=== PATIENT | female | born 1990 ===

== ENCOUNTER 2017-02-19 13:01 | Inpatient (IN) | payer OTHER, SELFPAY ==
[2017-02-19] MEDS ORDERED: Lactated Ringer's 1,000 ML IV ONE (14:34)
[2017-02-19 14:56] LABS: RBC URINE 3 /hpf (0-3); URINE BILIRUBIN NEGATIVE (NEGATIVE); URINE BLOOD NEGATIVE (NEGATIVE); URINE COLOR Yellow (YELLOW); URINE GLUCOSE (UA) 3+ mg/dL (Normal); URINE KETONE TRACE mg/dL (NEGATIVE); URINE LEUKOCYTE ESTERASE TRACE Leu/uL (Negative); URINE PROTEIN 2+ mg/dL (NEGATIVE); URINE UROBILINOGEN NORMAL mg/dL (0.2-1.0); WBC URINE 12 /hpf (0-5)
[2017-02-19] MEDS ORDERED: Magnesium Sulfate 6 GM in Dextrose 5% In Water 250 ML IVPB ONE (15:31)
[2017-02-19] MEDS ORDERED: Aluminum Hydroxide/Magnesium Hydroxide Susp (30 mL) ONE (15:36)
[2017-02-19 16:06] LABS: HEMATOCRIT 37.3 % (34.0-47.0); MEAN CELL VOLUME 81.7 fL (81.0-99.0); MEAN CORPUSCULAR HEMOGLOBIN 26.2 pg (27.0-31.0); MEAN CORPUSCULAR HGB CONC 32.1 g/dL (33.0-37.0); MEAN PLATELET VOLUME 11.4 fL (7.2-11.7); RED CELL DISTRIBUTION WIDTH 14.9 % (11.5-14.5)
[2017-02-19 16:17] LABS: CHLORIDE 104 mmol/L (98-107); POTASSIUM 3.9 mmol/L (3.6-5.2); SODIUM 137 mmol/L (132-148)
[2017-02-19 16:19] LABS: ALKALINE PHOSPHATASE 151 U/L (38-126); AST/SGOT 34 U/L (14-36); BILIRUBIN,DIRECT 0.5 mg/dL (0.0-0.4); BILIRUBIN,TOTAL 0.5 mg/dL (0.2-1.3); BLOOD UREA NITROGEN 12 mg/dL (7-17); CARBON DIOXIDE 22 mmol/L (22-30); GFR AFRICAN-AMERICAN > 60; GLUCOSE,RANDOM 128 mg/dL (65-105); TOTAL PROTEIN 6.9 g/dL (6.3-8.3)
[2017-02-19 16:20] LABS: ALT/SGPT 13 U/L (9-52); CALCIUM 8.9 mg/dl (8.6-10.4); URIC ACID 5.5 mg/dL (2.2-7.5)
[2017-02-19] MEDS ORDERED: Dextrose 5%/Lactated Ringer's 1,000 ML IV SCH ×2 (18:30→20:30)
--- NOTE | 2017-02-19 19:25 | OBPN ---
Datetime: 02/19/2017 19:14 IP Progress Plan: Continue present management; Tocolysis Membranes, Provider: Intact Contraction Comments Provider: Q 4 min FHR - Baseline A Provider: 150 Gestation - Est Wks by US: 32w 5d IP Progress Note Comment: FHR monitor noted for continued ctx every 4 min. Also, notified by RAndres p atient reports RLQ discomfort still present, improved - pain scale now 5/10. Received in bed: denies headaches, blurred vision, spots, epigastric pain. V.E.: as above. Assessment: 26 y.o. [id number], 32w 5d, GDM - poorly controlled; h/o labor - threatened labor on magnesium sulphate for tocolysis. No cervical change. Patient also on 24 hour urine collect ion (2+ proteinuria) - no signs of per-eclampsia. Category 1 tracing. Labs reviewed - grossly wnl. Cl inically stable. Plan: 1) Continue present management NICHD Accel Fetus A IP Provider: 15X15 FHR Category Provider Fetus A: Category I NICHD Variability Prov Fetus A: Moderate 6-25bpm Dilatation, Provider: 2 Effacement, Provider: 30 Station, Provider: -3 NICHD Decel Fetus A IP Provider: None Datetime: 02/19/2017 14:00 Vital Signs Provider: Reviewed; Within Normal Limits
--- NOTE | 2017-02-19 20:11 | OBHP ---
Datetime: 02/19/2017 19:14 FHR - Baseline A Provider: 150 Membranes, Provider: Intact Contraction Comments Provider: Q 4 min Gestation - Est Wks by US: 32w 5d NICHD Variability Prov Fetus A: Moderate 6-25bpm NICHD Accel Fetus A IP Provider: 15X15 FHR Category Provider Fetus A: Category I NICHD Decel Fetus A IP Provider: None Dilatation, Provider: 2 Effacement, Provider: 30 Station, Provider: -3 Datetime: 02/19/2017 14:00 IP Adm Impression: , intrauterine IP Chief Complaint Other: Elevated F.S. 298 mg/dL IP Adm Impression Other: History of delivery; gestational diabetes mellitus IP Admit Plan: Admit to unit IP Admit Plan Other: Tocolysis Admit Comment, IP Provider: Patient is Slovenian-speaking; interview and patient care mediated by Cici Garcia 26 y.o. , LMP unsure, JESUS 04/11/17, EGA 32w 5d by patient by 16 weeks ultrasound, presents concerned about results of 2 hr post prandial F.S. after breakfast= 298 mg/dL. (Fasting 147 mg/dL). Newly diagnosed GDM: GCT 01/27/17 215 mg/dL. Patient's F.S. log started 02/16 - all fastaings >> 90 mg/d L and all 2 hour post prandials >> 120 mg/dL. Of note patient ate fruits last evening/night only. The n ate 1/2 avocado and cheese for breakfast this morning. (+) AFM. Denies LOF, VB. C/O RLQ pain, onse t 02/15/17, pain scale 8/10 to 10/10. Worse this morinng at 1100 hours; pain scale 10/10 - "feels like contractions". Last had sexual intercourse 1 week ago. care: [facility] - Rh negative; S/P Rhog am mid January.; H/O delivery; S/P UTI x 1; abnormal Pap = HSIL; did not do colposcopy as recom mended P Ob: x 5:- 1st 3 FT - 2001, male - home weight unknonwn; 2003, female, 8 1/2 lb; 2006, male, 7 1/2 lbs. 2006, and 2013, both at "8 months", both males, 6 1/2 lb and 7 1/2 lbss, re spectively. Denies GDM in latter 2 pregnancies. All deliveries in [facility]. 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 Denies STIs PMH: obesity; GDM. JH/O asthma, diagnosed 2015; last attack 4 months ago PSH: denies NKDA Meds: PNV - QD Soc Hx: denies tobacco, illicit drug or EtOH use. Lives with FOB and last 2 children (1st [address] are in [facility]). With FOB x 17 years. Unemployed Fam Hx: Mother alive 55 y.o. no med issue. Father alive 88 - loss of vision due to cataract; no DM . No knonw fam h/o cancer P.E.: as above. Obese in NAD; appears a little uncomfortable, intermittently. Awake, alert, orient ed to time, person and place. Pleasant and cooperative Assessment: 26 yo grand multip, 32w 5d, h/o 2 prev PT deliveries; newly diagnosed GDM - to be opti mized. Category 1 tracing. Case discussed with Dr. Jones, who recommends the following: do not admin ister steroids due to hyperglycemic effect; admit for magnesium sulpjhate tocolysis. F.S. hourly and titrate IVFs accordingly and cover with sliding insulin scale. Upon discharge, have patient follow up with HRC, his recommendatoin at [facility]. This was explained to patient who expressed an understanding and agrees. U/A noted for proteinuria; leuk esterase negative. Patient is clinically stable. Plan: 1) Admit 2) NPO 3) IVFs alternating LR with D5LR 4) Admission labs, including pre-eclamptic labs 5) Urine for C_S 6) 24 hour colllection 7) Magnesium sulphate tocolysis 8) Strict I's and Os 9) Continuous EFM 10) F.S. Q hour 11) Observe Pelvic Type - PN: Adequate Extremities - PN: Normal Abdomen - PN: Normal Back - PN: Normal Breast - PN: Not Done Lungs - PN: Normal Heart - PN: Normal Thyroid - PN: Not Done Neurologic - PN: Normal HEENT - PN: Normal General - PN: Normal Comments, ACOG Physical Exam: Skin: warm, dry, intact Abdomen: obese. Soft, non tender in all quadrants Extremities: no calf tenderness All other systems reviewed and are negative IP Hx Assessment: The History has been Reviewed and is Current EGA AdmitDate IP: 32.5 Vital Signs Provider: Reviewed; Within Normal Limits IP Chief Complaint: Uterine contractions; Other Genitourinary Exam: Normal DTRs - PN: Not Done
[2017-02-19] MEDS: Magnesium Sulfate 20 gm 500 ML IV SCH (20:19)
[2017-02-20] MEDS ORDERED: Magnesium Sulfate 20 gm 500 ML IV ONE (04:51)
[2017-02-20] MEDS: Magnesium Sulfate 20 gm 500 ML IV SCH (06:50)
--- NOTE | 2017-02-20 08:16 | OBPN ---
Datetime: 02/20/2017 08:12 Contraction Comments Provider: none FHR - Baseline A Provider: 130 IP Progress Note Comment: pt was seen at bed side, no ctx, vb, lof,+fm. pt fels ok. pt is on mgso4 plan dc mgso4 fs fasting and 2 hr pp ada deit cont mendy and efm cont close observation NICHD Variability Prov Fetus A: Moderate 6-25bpm NICHD Decel Fetus A IP Provider: None
--- NOTE | 2017-02-20 15:00 | US ---
OB limited/biophysical profile Indication: Gestational diabetic Technique: Grayscale, color flow, and M-mode sonographic images of the single live intrauterine were obtained. Comparison: None available Findings: There is a single live intrauterine gestation. The fetus is in breech position. The placenta is fundal. There is no evidence of previa. There is a normal amount of amniotic fluid. The ROBB measures 19.1 cm. M-mode imaging demonstrates a heart rate to be 150.2 beats per min. Cervix length measures approximately 3.2 cm. Biparietal diameter measures 9.0 cm compatible with gestational age 36 weeks 4 days Head circumference measures 32.5 cm compatible with gestational age 36 weeks 5 days Abdominal circumference 34.2 cm compatible with gestational age 38 weeks 1 day Femur length measures approximately 7 cm compatible with gestational age 35 weeks 5 days movements 2/2 breathing 2/2 tone 2/2 Amniotic fluid 2/2 Total score impression: 8 Impression: Biophysical profile of 8 out of 8. Single live intrauterine in the breech position with a heart rate of 150.2 beats per min. Mean ultrasound gestational age 36 weeks 6 days. Please note that abdominal circumference measurement is slightly increased compatible with gestational age 38 weeks 1 day. Additional findings as above.
--- NOTE | 2017-02-20 17:25 | OBPN ---
Datetime: 02/20/2017 17:21 IP Procedures: Sterile Vag Exam Contraction Comments Provider: irrg FHR - Baseline A Provider: 140 IP Progress Note Comment: pt was seen at bed side. 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 pt feels goood, no ctxs, vb, lof,+fm. toco irrg ctxs sono breech/fundal//36.6weeks bpp 8/8 fs well controlled ve closed. ext os 11/21/-3 plan fs start ivf repeat sono in Maternal medicine cont mendy and efm repeat pih in am cont close observation Vital Signs Provider: Reviewed; Within Normal Limits NICHD Accel Fetus A IP Provider: 10X10 FHR Category Provider Fetus A: Category I NICHD Variability Prov Fetus A: Moderate 6-25bpm Dilatation, Provider: 0 Effacement, Provider: 0 Station, Provider: -3
[2017-02-20] MEDS ORDERED: Lactated Ringer's 1,000 ML IV SCH (17:30)
[2017-02-21 06:52] LABS: CHLORIDE 104 mmol/L (98-107); POTASSIUM 3.9 mmol/L (3.6-5.2); SODIUM 136 mmol/L (132-148)
[2017-02-21 06:54] LABS: BILIRUBIN,DIRECT 0.5 mg/dL (0.0-0.4); BILIRUBIN,TOTAL 0.6 mg/dL (0.2-1.3); CARBON DIOXIDE 22 mmol/L (22-30); GFR AFRICAN-AMERICAN > 60
[2017-02-21 06:55] LABS: ALKALINE PHOSPHATASE 126 U/L (38-126); ALT/SGPT 19 U/L (9-52); AST/SGOT 37 U/L (14-36); BLOOD UREA NITROGEN 11 mg/dL (7-17); CALCIUM 8.4 mg/dl (8.6-10.4); GLUCOSE,RANDOM 99 mg/dL (65-105); TOTAL PROTEIN 6.2 g/dL (6.3-8.3)
[2017-02-21 07:34] LABS: BASO % 0.4 % (0.0-2.0); EOS # 0.1 K/uL (0.0-0.7); EOS % 1.2 % (0.0-4.0); LYMPH # 2.3 K/uL (1.0-4.3); LYMPH % 24.4 % (20.0-40.0); MEAN CELL VOLUME 80.8 fL (81.0-99.0); MEAN CORPUSCULAR HEMOGLOBIN 26.1 pg (27.0-31.0); MEAN CORPUSCULAR HGB CONC 32.3 g/dL (33.0-37.0); MEAN PLATELET VOLUME 10.7 fL (7.2-11.7); MONO # 0.6 K/uL (0.0-0.8); MONO % 6.6 % (0.0-10.0); RED CELL DISTRIBUTION WIDTH 14.9 % (11.5-14.5); WHITE BLOOD COUNT 9.5 K/uL (4.8-10.8)
[2017-02-21] MEDS ORDERED: HYDROmorphone 0.5 mg/0.5 ml ISec IVP PRN (15:42)
--- NOTE | 2017-02-21 16:11 | OBPN ---
Datetime: 02/21/2017 14:33 IP Progress Impression: Reassuring heart rate IP Progress Plan: Discharge Contraction Comments Provider: occ Gestation - Est Wks by US: 34.2 IP Progress Note Comment: S-patient states that she does not feel the contractions or pain anymore.D enies vaginal bleeding or loss of fluid O-VSS Afebrile Fundus gravid Extremities no calf tenderness fht cat1 [place] occ ctx sve 11/21/-3 A/P 26 y/o at 34.2 wga with contracxtions and gestational diabtes.Patient s/p magn esium sulfate.No change in cervix since admission essentially.Blood sugars noted to be elavted fastin g and 2 hr pp after breakfast and lunch today.Also some elevated blood sugar pp yesterday.Ultrasound done yesterday showed AC measuring 38 weeks.Urine cx>100K gbs.Rh negative-s/p rhogam.Pap done was hgs [place].patient never did colpo. -start gluburide 1.25 mg at bed time.continue fs fasting and 2 hr pp.Return to er immediately if b lood sugar >200mg/dl -UTI.start amoxicillin 500mg tidx 7 days -patient sent to ATU for growth scan with perinatology eval.Ultrasound shows EFW 3849 grams (>99 %).Transverse.BPP 05/30.recommend twice weekly testung and grwoth scan in 2 weeks. -follow up with in 2 days.Schedule colposcopy as soon as possible.schedule echo asa p Dr Burgess called and case discussed.Discussed need for repeat bpp on or monday and then ag ain twice weekly next week and grwoth scan in 2 weeks Explained the plan of care and ultrasound findings with the patient Vital Signs Provider: Reviewed; Within Normal Limits FHR Category Provider Fetus A: Category I Dilatation, Provider: 1 Effacement, Provider: 30 Station, Provider: -3
--- NOTE | 2017-02-21 16:18 | OBDCSUM ---
Datetime: 02/21/2017 16:10 Discharged to, Provider: Home Follow up at, Provider: DR Burgess([facility] Disch Instr Activity: Normal activity Disch Instr Diet: Restricted, specify Discharge Diet restrict Prov: ADA diet Discharge Instructions, Provider: Routine instructions given Discharge Time: 02/21/2017 16:10 Follow up in weeks, Provider: 2 DAYS Discharge Comment, Provider: Patient admitted with abdominal pain at 34 wga by ultrasound.Patient gi hema magnesium sulfate.FS done.FS noted to be elevated and hence started on glyburide.Urine cx with >1 00k gbs.Ultrasound done shows LGA with efw >99%.Patient discharged home.Sctript for glyburide and amoxicillin given.Discussed need for testing twice weekly and growth scan in 2 weeks.Patien t given decreased movement, labor and PPROM precautions Discharge Diagnosis Prov Other: gestational diabetes on gluburide UTI Infant Lga
--- NOTE | 2017-03-10 16:39 | OBADHP ---
Datetime: 02/21/2017 14:33 Contraction Comments Provider: occ Gestation - Est Wks by US: 34.2 Vital Signs Provider: Reviewed; Within Normal Limits FHR Category Provider Fetus A: Category I Dilatation, Provider: 1 Effacement, Provider: 30 Station, Provider: -3 Datetime: 02/20/2017 17:21 FHR - Baseline A Provider: 140 NICHD Variability Prov Fetus A: Moderate 6-25bpm NICHD Accel Fetus A IP Provider: 10X10 Datetime: 02/20/2017 08:12 NICHD Decel Fetus A IP Provider: None Datetime: 02/19/2017 19:14 Membranes, Provider: Intact Datetime: 02/19/2017 14:00 IP Chief Complaint Other: Elevated F.S. 298 mg/dL IP Adm Impression Other: History of delivery; gestational diabetes mellitus IP Admit Plan Other: Tocolysis Admit Comment, IP Provider: Patient is Belizean-speaking; interview and patient care mediated by Cici Garcia 26 y.o. , LMP unsure, JESUS 04/11/17, EGA 32w 5d by patient by 16 weeks ultrasound, presents concerned about results of 2 hr post prandial F.S. after breakfast= 298 mg/dL. (Fasting 147 mg/dL). Newly diagnosed GDM: GCT 01/27/17 215 mg/dL. Patient's F.S. log started 02/16 - all fastaings >> 90 mg/d L and all 2 hour post prandials >> 120 mg/dL. Of note patient ate fruits last evening/night only. The n ate 1/2 avocado and cheese for breakfast this morning. (+) AFM. Denies LOF, VB. C/O RLQ pain, onse t 02/15/17, pain scale 8/10 to 10/10. Worse this morinng at 1100 hours; pain scale 10/10 - "feels like contractions". Last had sexual intercourse 1 week ago. care: [facility] - Rh negative; S/P Rhog am mid January.; H/O delivery; S/P UTI x 1; abnormal Pap = HSIL; did not do colposcopy as recom mended P Ob: x 5:- 1st 3 FT - 2001, male - home weight unknonwn; 2003, female, 8 1/2 lb; 2006, male, 7 1/2 lbs. 2006, and 2013, both at "8 months", both males, 6 1/2 lb and 7 1/2 lbss, re spectively. Denies GDM in latter 2 pregnancies. All deliveries in [facility]. 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 Denies STIs PMH: obesity; GDM. JH/O asthma, diagnosed 2015; last attack 4 months ago PSH: denies NKDA Meds: PNV - QD Soc Hx: denies tobacco, illicit drug or EtOH use. Lives with FOB and last 2 children (1st 3 are in [facility]). With FOB x 17 years. Unemployed Fam Hx: Mother alive 55 y.o. no med issue. Father alive 88 - loss of vision due to cataract; no DM . No knonw fam h/o cancer P.E.: as above. Obese in NAD; appears a little uncomfortable, intermittently. Awake, alert, orient ed to time, person and place. Pleasant and cooperative Assessment: 26 yo grand multip, 32w 5d, h/o 2 prev PT deliveries; newly diagnosed GDM - to be opti mized. Category 1 tracing. Case discussed with Dr. Jones, who recommends the following: do not admin ister steroids due to hyperglycemic effect; admit for magnesium sulpjhate tocolysis. F.S. hourly and titrate IVFs accordingly and cover with sliding insulin scale. Upon discharge, have patient follow up with [facility], his recommendatoin at [facility]. This was explained to patient who expressed an understanding and agrees. U/A noted for proteinuria; leuk esterase negative. Patient is clinically stable. Plan: 1) Admit 2) NPO 3) IVFs alternating LR with D5LR 4) Admission labs, including pre-eclamptic labs 5) Urine for C_S 6) 24 hour colllection 7) Magnesium sulphate tocolysis 8) Strict I's and Os 9) Continuous EFM 10) F.S. Q hour 11) Observe Pelvic Type - PN: Adequate Extremities - PN: Normal Abdomen - PN: Normal Back - PN: Normal Breast - PN: Not Done Lungs - PN: Normal Heart - PN: Normal Thyroid - PN: Not Done Neurologic - PN: Normal HEENT - PN: Normal General - PN: Normal Comments, ACOG Physical Exam: Skin: warm, dry, intact Abdomen: obese. Soft, non tender in all quadrants Extremities: no calf tenderness All other systems reviewed and are negative IP Hx Assessment: The History has been Reviewed and is Current IP Chief Complaint: Uterine contractions; Other Genitourinary Exam: Normal DTRs - PN: Not Done EGA AdmitDate IP: 32.5 IP Adm Impression: , intrauterine IP Admit Plan: Admit to unit
[2017-03-10] MEDS ORDERED: DiphenhydrAMINE 50 mg/ml Inj IVP PRN (19:43)
--- NOTE | 2017-03-10 20:35 | OBDS ---
DELIVERY PERSONNEL Delivery Doctor: Mohini Yoon MD Scrub Nurse: Lillian Chavez OBT Mold Changer: Raiza Peñaloza RN Anesthesiologist: MATERNAL INFORMATION Delivery Anesthesia: Spinal Medications in Delivery: Pitocin Estimated Blood Loss (ml): 600 Placenta Cultured: No Maternal Complications: None RN Comments: live baby girl born via primary c/section due to breech presentation with 9_9 Provider Comments: Uncomplicated delivery of a viable female baby with BW of 9Ibs 1oz and a pgar scores of 9 and 9. Delivered in complete breech presentation. LABOR SUMMARY EDC: 04/11/2017 00:00 No. Babies in Womb: 1 Attempted: No Labor Anesthesia: None LABOR INFORMATION Reason for Induction: Not Applicable Oxytocin: N/A Group B Beta Strep: Not Done Steroids Given: None Reason Steroids Not Administered: Not Applicable MEMBRANES Membranes Rupture Method: Spontaneous Rupture of Membranes: 03/10/2017 10:00 Length of Rupture (hrs): 9.43 Amniotic Fluid Color: Clear Amniotic Fluid Amount: Moderate Amniotic Fluid Odor: Normal STAGES OF LABOR Stage 3 hrs: 0 Stage 3 min: 1 CSECTION DELIVERY Primary Indication: Breech Presentation CSection Urgency: Non Elective CSection Incidence: Primary Labor: Labor Elective: Nonelective CSection Incision: Lower Uterine Transverse Uterine Closure: Double-layer closure BABY A INFORMATION Infant Delivery Date/Time: 03/10/2017 19:26 Method of Delivery: Born in Route : No : N/A Forceps: N/A Vacuum Extraction: N/A Shoulder Dystocia : No SHOULDER DYSTOCIA BABY A Delivery Date/Time: 03/10/2017 19:26 PRESENTATION/POSITION BABY A Presentation: Breech Cephalic Presentation: N/A Breech Presentation: Complete PLACENTA INFORMATION BABY A Placenta Delivery Time : 03/10/2017 19:27 Placenta Method of Delivery: Manual Removal Placenta Status: Delivered SCORES BABY A Heart Rate 1 min: >100 bpm Resp Effort 1 min: Good Cry Reflex Irritability 1 min: Cough or Sneeze or Pulls Away Muscle Tone 1 min: Active Motion Color 1 min: Body [place], Extremities Blue SCORE 1 MIN: 9 Heart Rate 5 min: >100 bpm Resp Effort 5 min: Good Cry Reflex Irritability 5 min: Cough or Sneeze or Pulls Away Muscle Tone 5 min: Active Motion Color 5 min: Body [place], Extremities Blue SCORE 5 MIN: 9 INFORMATION BABY A Gestational Age at Delivery: 35.3 Gestational Status: Outcome : Liveborn Condition : Stable Infant Sex: Female IDENTIFICATION/MEDS BABY A ID Band Number: [id number] ID Band Location: Left Leg; Left Arm Sensor Applied: Yes Sensor Number: [id number] Sensor Location : Cord Clamp WEIGHT/LENGTH BABY A Birthweight (gms): 4120 Infant Weight (lb): 9 Weight (oz): 1 Length Inches: 20.50 Infant Length cms: 52.1 CORD INFORMATION BABY A No. Cord Vessels: 3 Nuchal Cord : N/A Cord Blood Taken: Yes Suction: Mouth; Nose; Pharynx ASSESSMENT BABY A Complications: None Physical Findings at Delivery: Within Normal Limits Respirations: Appears Normal Wire Weaver Cloth/ALS Called : No Care By: /LorenzoRN Transferred To: Remains with Mother
== END 2017-02-21 17:10 | disposition home or self-care (01) | DRG 778 ==
LOC: C.ER 13:01 → C.EROB 13:01 → C.4D 15:16 → UNDODISIN 02-21 17:10
PROVIDERS: ADMIT Obstetrics & Gynecology; ATTEND Obstetrics & Gynecology
DX: O60.03 Preterm labor without delivery, third trimester (principal); O23.43 Unspecified infection of urinary tract in pregnancy, third trimester; O24.415 Gestational diabetes mellitus in pregnancy, controlled by oral hypoglycemic drugs; O36.63X0 Maternal care for excessive fetal growth, third trimester, not applicable or unspecified; Z3A.34 34 weeks gestation of pregnancy

== ENCOUNTER 2017-03-10 16:57 | Inpatient (IN) | payer MEDICAID, OTHER ==
--- NOTE | 2017-03-10 17:45 | OBHP ---
Datetime: 03/10/2017 17:36 IP Adm Impression: , intrauterine ; Active labor; Ruptured Membranes IP Adm Impression Other: Breech Presentation IP Admit Plan: Admit to unit; Initiate Section protocol Admit Comment, IP Provider: 26yo with an IUP at 36.2wks, EDC -04/02/2017. Presents here today c/ o leakge of fluid since this afternoon. She a is a pt from [facility] and is GDMA on Glyburide. She d enies VB and feels good movements. [place]- Q 3-5, FHR- category 1, Speculum exam: Gross pooling, Nitrazine - positive. Cx: /-3 Assessment: IUP at 36.2 wks with SROM Breech Presentation Plan: Admit to LND Prepare for delivery. The findings were discussed with patient. The risks and benefits of section were d/w pt. Her questions were answered. Consent obtained. Pelvic Type - PN: Adequate Extremities - PN: Normal Abdomen - PN: Normal Back - PN: Normal Breast - PN: Normal Lungs - PN: Normal Heart - PN: Normal Thyroid - PN: Normal Neurologic - PN: Normal HEENT - PN: Normal General - PN: Normal FHR - Baseline A Provider: 150 Membranes, Provider: Bulging Contraction Comments Provider: Q 3-5 Comments, ACOG Physical Exam: ABD: Soft, NT, BS - present Speculum exams: Gross pooling, Nitrazine - +ve Bedside Sonogram: Breech Presentation Gestation - Est Wks by US: 36.2 Pool Provider: Positive Nitrazine Provider: Positive EGA AdmitDate IP: 35.3 IP Chief Complaint: Uterine contractions; Suspected ruptured membranes; Maternal discomfort NICHD Variability Prov Fetus A: Moderate 6-25bpm NICHD Accel Fetus A IP Provider: 15X15 FHR Category Provider Fetus A: Category I NICHD Decel Fetus A IP Provider: None Dilatation, Provider: 2 Effacement, Provider: 50 Station, Provider: -3 Genitourinary Exam: Normal DTRs - PN: Normal Datetime: 02/21/2017 14:33 Amniotic Fluid Color, Provider: Clear Vital Signs Provider: Reviewed; Within Normal Limits Datetime: 02/19/2017 14:00 IP Indication for Induction: Not Applicable
[2017-03-10] MEDS ORDERED: Sodium Citrate/Citric Acid 15 ml Sol PO ONE (17:48)
[2017-03-10] MEDS ORDERED: cefOXitin IV 2 gm in Dextrose 2 GM/50 ML BAG IVPB ONE ×2 (17:48→18:25)
[2017-03-10 17:54] VITALS: BMI 41.5
[2017-03-10] MEDS ORDERED: Lactated Ringer's 1,000 ML IV SCH (18:00)
[2017-03-10] MEDS ORDERED: Dextrose 5%/Lactated Ringer's 1,000 ML IV SCH (18:04)
[2017-03-10 18:12] LABS: BASO # 0.1 K/uL (0.0-0.2); BASO % 0.6 % (0.0-2.0); EOS # 0.1 K/uL (0.0-0.7); EOS % 1.2 % (0.0-4.0); HEMATOCRIT 38.8 % (34.0-47.0); LYMPH # 2.9 K/uL (1.0-4.3); LYMPH % 25.5 % (20.0-40.0); MEAN CELL VOLUME 79.9 fL (81.0-99.0); MEAN CORPUSCULAR HEMOGLOBIN 25.5 pg (27.0-31.0); MEAN PLATELET VOLUME 10.6 fL (7.2-11.7); MONO # 0.8 K/uL (0.0-0.8); MONO % 6.9 % (0.0-10.0); RED CELL DISTRIBUTION WIDTH 15.3 % (11.5-14.5); WHITE BLOOD COUNT 11.5 K/uL (4.8-10.8)
[2017-03-10 18:16] LABS: RBC URINE 3 /hpf (0-3); TRANSITIONAL EPITHIAL 1 /hpf (0-3); URINE BACTERIA OCC (<OCC); URINE BILIRUBIN NEGATIVE (NEGATIVE); URINE BLOOD NEGATIVE (NEGATIVE); URINE COLOR Yellow (YELLOW); URINE GLUCOSE (UA) NORMAL (Normal); URINE KETONE NEGATIVE (NEGATIVE); URINE LEUKOCYTE ESTERASE 1+ Leu/uL (Negative); URINE PROTEIN 2+ mg/dL (NEGATIVE); URINE UROBILINOGEN NORMAL mg/dL (0.2-1.0); WBC URINE 6 /hpf (0-5)
[2017-03-10 18:20] LABS: CHLORIDE 102 mmol/L (98-107); POTASSIUM 4.1 mmol/L (3.6-5.2); SODIUM 135 mmol/L (132-148)
[2017-03-10 18:22] LABS: GFR AFRICAN-AMERICAN > 60
[2017-03-10 18:23] LABS: ALKALINE PHOSPHATASE 174 U/L (38-126); ALT/SGPT 23 U/L (9-52); AST/SGOT 35 U/L (14-36); BILIRUBIN,TOTAL 0.6 mg/dL (0.2-1.3); BLOOD UREA NITROGEN 9 mg/dL (7-17); CALCIUM 8.3 mg/dl (8.6-10.4); CARBON DIOXIDE 21 mmol/L (22-30); GLUCOSE,RANDOM 76 mg/dL (65-105)
[2017-03-10] MEDS ORDERED: Sodium Citrate/Citric Acid 15 ml Sol ONE (18:25)
[2017-03-10] MEDS ORDERED: Oxytocin 20 units in LR 2,000 ML IV ONE (18:25)
[2017-03-10] MEDS ORDERED: Morphine 1 mg/ml preservative-free Inj(Duramorph) ONE (19:02)
[2017-03-10] MEDS ORDERED: ePHEDrine 50 mg/ml Inj ONE (19:41)
[2017-03-10] MEDS ORDERED: Phenylephrine 10 mg/ml Inj ONE (19:41)
[2017-03-10] MEDS ORDERED: DiphenhydrAMINE 50 mg/ml Inj IVP PRN (19:44)
--- NOTE | 2017-03-10 20:53 | PCM.SURG1 ---
Surgeon's Initial Post Op Note - Surgeon's Notes Surgeon: Dr Yoon Cross Country Coach: Dr Segundo Type of Anesthesia: Spinal Anesthesia Administered By: Dr Todd Urban Pre-Operative Diagnosis: IUP at 36+ wks with SROM, Breech Presentation Operative Findings: Live female infant with BW of 9Ibs 1 oz delivered in complete breech presentation, scores of 9 and 9. Fundal Placenta and clear amniotic fluid. IVF- 2000ml. EBL- 600mls. Urine output- 400mls Post-Operative Diagnosis: Same as Preop diagnosis Operation Performed: Primary Low Transverse Section Specimen/Specimens Removed: Umbilical cord blood Estimated Blood Loss: EBL {In ML}: 600 Post-Op Condition: Good Date of Surgery/Procedure: 03/10/17 Time of Surgery/Procedure: 20:53
--- NOTE | 2017-03-10 22:23 | OP ---
PROCEDURE DATE: 03/10/2017 PREOPERATIVE DIAGNOSES: Intrauterine at 36+ weeks with spontaneous rupture of membrane, fe tus in breech presentation. POSTOPERATIVE DIAGNOSES: Intrauterine at 36+ weeks with spontaneous rupture of membrane, f etus in breech presentation. PROCEDURE: Primary low transverse section performed on 03/10/17. SURGEON: Dr. Yoon. MEDICAL PHYSICIST: Dr. Segundo. Assistance to this procedure was needed for exposure of tissues and help in de livery of the baby. The administration assistant remained with the procedure throughout its entire length. TYPE OF ANESTHESIA: Spinal. Anesthesia was administered by Dr. Todd Urban. OPERATIVE FINDINGS: A live female with weight of 9 pounds and 1 ounce, delivered in com plete breech presentation, fundal placenta, clear amniotic fluid, scores of 9 in the first and fifth minutes respectively. The uterus, both fallopian tubes and ovaries appeared normal. INTRAVENOUS FLUID INTAKE: INTAKE 2000 mL. ESTIMATED BLOOD LOSS: 600 mL. URINE OUTPUT: 400 mL of clear urine after the end of the procedure. COMPLICATIONS: None. Umbilical cord blood was sent for analysis. DESCRIPTION OF PROCEDURE: After obtaining informed consent and going through the risks, benefits and alternatives of section for delivery of the baby and after having all her questions answere d, the patient was sent to the OR with IV running and Pimentel catheter in place. The patient was set o n the OR table and after adequate spinal anesthesia, was put in a supine position with a left lateral tilt. The patient was then prepped and draped in the usual sterile fashion. A Pfannenstiel skin in cision was made about 2.5 cm from the pubic symphysis using a scalpel and this incision was extended sharply through the subcuticular tissue so the rectus fascia was identified. A transverse incision w as made in the mid portion of the rectus fascia and this was extended to both sides by means of Garrett scissors. The rectus fascia was lifted off the underlying rectus muscles both superiorly and inferio rly by means of a sharp dissection using Garrett scissors and blunt dissection. The rectus muscle was s eparated in the midline to expose the peritoneum, which was tented between 2 Winsome clamps and sharply entered using Metzenbaum scissors and with good visualization of the bladder. Once the abdominal ca vity was entered, the above findings were noted and the vesicouterine fold of peritoneum was identifi ed, incised in a transverse fashion and retracted inferiorly to expose the lower uterine segment. A low transverse incision was made using a scalpel. This incision was sent through the myometrial laye rs so the amniotic membranes were seen. The incision was sent to both sides by means of a blunt trac tion. The baby, which was in complete breech presentation in the intrauterine cavity was carefully d elivered. The mouth and nostrils were bulb suctioned after delivery and the 3-vessel cord was clampe d and cut and the baby was given to the nurse. Umbilical cord blood was obtained for analys is and the placenta was manually removed from the uterine cavity. The uterus was brought out of the abdominal cavity and the uterine cavity cleaned of all debris using dry laparotomy pads. The uterine incision was then closed in 2 layers using Vicryl #0; the first layer in a running locked fashion an d the second layer in a running fashion imbricating the first layer. This was performed until hemost asis was assured. Irrigation of the pelvis was conducted at this point, after which the uterus was r eturned into the abdominal cavity. The uterine incisional area was reinspected for any hemostasis, a nd once hemostasis was assured, attention was turned to the anterior abdominal wall, which was closed in layers with 2-0 Vicryl for the peritoneum and the rectus muscles. The rectus fascia was reapprox imated using Vicryl #0; the subcutaneous tissues were brought together using #2-0 plain and the skin was closed in a subcuticular fashion using #4-0 Vicryl. All counts of instruments, laparotomy pads, and needles used were correct x 3 and the patient was sent to the recovery room awake and in stable c ondition. Gabe Yoon MD cc: [id number] TT: 03/10/2017 22:22:49 bee
[2017-03-11] MEDS: cefOXitin IV 2 gm in Dextrose 2 GM/50 ML BAG IVPB SCH ×3 (05:15→20:32)
[2017-03-11 08:13] LABS: BASO % 0.3 % (0.0-2.0); EOS # 0.1 K/uL (0.0-0.7); HEMATOCRIT 30.1 % (34.0-47.0); LYMPH % 18.6 % (20.0-40.0); MEAN CELL VOLUME 80.2 fL (81.0-99.0); MEAN CORPUSCULAR HEMOGLOBIN 26.8 pg (27.0-31.0); MEAN CORPUSCULAR HGB CONC 33.4 g/dL (33.0-37.0); MEAN PLATELET VOLUME 10.2 fL (7.2-11.7); MONO # 0.8 K/uL (0.0-0.8); MONO % 7.5 % (0.0-10.0); RED CELL DISTRIBUTION WIDTH 15.1 % (11.5-14.5); WHITE BLOOD COUNT 10.6 K/uL (4.8-10.8)
[2017-03-11] MEDS: Ferrous Fum/Folic Acid/IF/VI 1 Cap PO SCH (10:00)
--- NOTE | 2017-03-11 10:06 | OBPPN ---
Datetime: 03/11/2017 08:40 PP Pain Prov: Within normal limits PP Nausea Prov: Denies PP Flatus Prov: No PP BM Prov: No PP Breasts Prov: Normal PP Heart Prov: Abnormal PP Lungs Prov: Normal PP Abdomen/Uterus Prov: Normal PP Lochia Prov: Normal PP Vulva/Perineum Prov: Not Done PP CVA Tenderness Prov: Normal PP Extremities Prov: Normal PP C/S Incision Prov: Normal PP Progress Prov: Not Applicable PP Comments Phys Exam Prov: Skin: warm, dry, intact Cardiac: tachycardic; normal S1, S2; no appreciable murmur Abdomen: Obese. Soft, non distended. (+) BS. Incision with dressing - clean and dry. Moderate loch ia rubra Extremities: no edema; venodynes in place; also, duval in place All other systems reviewd and are negative. PP Impression Prov: Normal progression PP Plan Prov: Continue present management PP Progress Note Prov: Patient received in bed, room 452. Denies incisional pain at this time. Hungr y. Not yet attempted "I only have a little". Denies nausea or vomiting. Not yet OOB. P.E.: as above. Morbidly obese, in NAD. Awake, alert, oriented to time, person and place. Pleasant and cooperative. FOB present. - POD#1 H/H 10.1/ 30.1; Rh (-). Infant is Rh(+). Assessment: POD#1, 26 y.o. P5106, S/P urgent primary Caesarean section at 35+ weeks, PPROM and Hui ech presentation; H/O GDM. Maternal tachycardia noted; 2 oint decrease noted - this may account for t achycardia. No c/o pain; will medicate as needed. Patient otherwise clinically stable. Plan: 1) remove duval 2) OOB to chair, and ambulate slowly 3) clear liquid diet; advance as tolerated 4) Start iron, once a day 5) continue post- op care Vital Signs Provider PP: Reviewed; Within Normal Limits Vital Signs Provider Details PP: H.R. 108 bpm; noted
[2017-03-11] MEDS: Oxycodone/Acetaminophen 5/325 mg Tab PO PRN (20:26)
[2017-03-12] MEDS: Oxycodone/Acetaminophen 5/325 mg Tab PO PRN ×2 (11:36→21:06)
[2017-03-12] MEDS: Ferrous Fum/Folic Acid/IF/VI 1 Cap PO SCH (11:38)
--- NOTE | 2017-03-12 12:25 | OBPPN ---
Datetime: 03/12/2017 12:08 PP Pain Prov: Within normal limits PP Nausea Prov: Denies PP Flatus Prov: Yes PP BM Prov: No PP Breasts Prov: Not Done PP Heart Prov: Normal PP Lungs Prov: Normal PP Abdomen/Uterus Prov: Normal PP Lochia Prov: Normal PP Vulva/Perineum Prov: Not Done PP CVA Tenderness Prov: Normal PP Extremities Prov: Normal PP C/S Incision Prov: Normal PP Progress Prov: Normal PP Comments Phys Exam Prov: Skin: warm, dry, intact Abdomen: (+) BS. Obese. Incision with subcuticular closure - clean, dry and intact. Fundus firm, m obile, appropriately and mildly tender, 2FB below umbilicus. Mild lochia rubra All ohter systems reviewed and are negative PP Impression Prov: Normal progression PP Plan Prov: Continue present management PP Progress Note Prov: Patient received in room 452, atending to infant in basinet. Abdominal pain, 8/10. Breast- and bottlefeeding. Denies headaches, dizziness, chest pain, lightheadedness, chest pain or shortness of breath. Ambulating and voiding without difficulty P.E.: as above. Obese, in NAD. Awake, alert, oriented to time, person and place. Pleasant and coop eraative Assessment: POD#2, 26 yo P6, S/P primary C/S for Breech presentation with PPROM. Afebrile. Sinus tachycardia noted; most likely due to combination of pain and decrease H/H. Patient is hemodynamicall y and clinically stable. Plan: 1) Continue present management 2) Anticipate discharge home 03/13/17 Vital Signs Provider PP: Reviewed Vital Signs Provider Details PP: Sinus tachycardia. Repeat manual HR by RYaakovNYaakov = 102 bpm
[2017-03-12 19:52] VITALS: BP 114/82
[2017-03-13] MEDS: Oxycodone/Acetaminophen 5/325 mg Tab PO PRN ×2 (03:54→15:33)
--- NOTE | 2017-03-13 07:18 | OBDCSUM ---
Datetime: 03/13/2017 07:17 Discharged to, Provider: Home Follow up at, Provider: 2week Disch Instr Diet: Regular Discharge Diagnosis, Provider: Postterm Delivery Follow up in weeks, Provider: clinic Disch Activity Restrictions: No exercising; No lifting; No driving; Minimize walking; Minimize stair -climbing; No sexual activity; Nothing in vagina - [place], tampons, douche Discharge Comment, Provider: no sex percocet prn f/u in 2week Discharge Diagnosis Prov Other: s/p s/p
--- NOTE | 2017-03-13 07:18 | OBPPN ---
Datetime: 03/13/2017 07:15 PP Pain Prov: Within normal limits PP Pain Prov comment: well controled PP Nausea Prov: Denies PP Flatus Prov: Yes PP BM Prov: Yes PP Abdomen/Uterus Prov: Normal PP Lochia Prov: Normal PP Extremities Prov: Normal PP C/S Incision Prov: Normal PP Comments Phys Exam Prov: fudus below umblicus ext no edema,no calf ten incision clean and dry PP Impression Prov: Normal progression PP Plan Prov: Discharge PP Progress Note Prov: pt was een at bed side, pain under control, no n/v, tolerating deit, voding,m in lochia, flatus+ pod#3 s/p c/s dc home no sex percocet prn fu in clinic in 2week Vital Signs Provider PP: Reviewed; Within Normal Limits
--- NOTE | 2017-03-13 07:26 | CP.PCM.DIS ---
Provider - Provider Date of Admission: 03/10/17 17:54 Attending physician: Gabe Yoon Time Spent in preparation of Discharge (in minutes): 40 Diagnosis - Discharge Diagnosis (1) Status: Resolved (2) Delivered by section Status: Resolved Hospital Course - Lab Results Lab Results: Most Recent Lab Values WBC 10.6 K/uL (4.8-10.8) 03/11/17 08:03 RBC 3.75 Mil/uL (3.80-5.20) L 03/11/17 08:03 Hgb 10.1 g/dL (11.0-16.0) L D 03/11/17 08:03 Hct 30.1 % (34.0-47.0) L 03/11/17 08:03 MCV 80.2 fL (81.0-99.0) L 03/11/17 08:03 MCH 26.8 pg (27.0-31.0) L 03/11/17 08:03 MCHC 33.4 g/dL (33.0-37.0) 03/11/17 08:03 RDW 15.1 % (11.5-14.5) H 03/11/17 08:03 Plt Count 227 K/uL (130-400) 03/11/17 08:03 MPV 10.2 fL (7.2-11.7) 03/11/17 08:03 Neut % (Auto) 72.6 % (50.0-75.0) 03/11/17 08:03 Lymph % (Auto) 18.6 % (20.0-40.0) L 03/11/17 08:03 [place] % (Auto) 7.5 % (0.0-10.0) 03/11/17 08:03 Eos % (Auto) 1.0 % (0.0-4.0) 03/11/17 08:03 Baso % (Auto) 0.3 % (0.0-2.0) 03/11/17 08:03 Neut # 7.7 K/uL (1.8-7.0) H 03/11/17 08:03 Lymph # 2.0 K/uL (1.0-4.3) 03/11/17 08:03 [place] # 0.8 K/uL (0.0-0.8) 03/11/17 08:03 Eos # 0.1 K/uL (0.0-0.7) 03/11/17 08:03 Baso # 0.0 K/uL (0.0-0.2) 03/11/17 08:03 Sodium 135 mmol/L (132-148) 03/10/17 18:07 Potassium 4.1 mmol/L (3.6-5.2) 03/10/17 18:07 Chloride 102 mmol/L (98-107) 03/10/17 18:07 Carbon Dioxide 21 mmol/L (22-30) L 03/10/17 18:07 Anion Gap 16 (10-20) 03/10/17 18:07 BUN 9 mg/dL (7-17) 03/10/17 18:07 Creatinine 0.4 MG/DL (0.7-1.2) L 03/10/17 18:07 Est GFR ( Amer) > 60 03/10/17 18:07 Est GFR (Non-Af Amer) > 60 03/10/17 18:07 Random Glucose 76 mg/dL (65-105) 03/10/17 18:07 Calcium 8.3 mg/dl (8.6-10.4) L 03/10/17 18:07 Total Bilirubin 0.6 mg/dL (0.2-1.3) 03/10/17 18:07 AST 35 U/L (14-36) 03/10/17 18:07 ALT 23 U/L (9-52) 03/10/17 18:07 Alkaline Phosphatase 174 U/L (38-126) H D 03/10/17 18:07 Total Protein 7.0 g/dL (6.3-8.3) 03/10/17 18:07 Albumin 3.5 g/dL (3.5-5.0) 03/10/17 18:07 Globulin 3.5 gm/dL (2.2-3.9) 03/10/17 18:07 Albumin/Globulin Ratio 1.0 (1.0-2.1) 03/10/17 18:07 Urine Color Yellow (YELLOW) 03/10/17 18:07 Urine Clarity Hazy (Clear) 03/10/17 18:07 Urine pH 6.0 (5.0-8.0) 03/10/17 18:07 Ur Specific [place] 1.019 (1.003-1.030) 03/10/17 18:07 Urine Protein 2+ mg/dL (NEGATIVE) H 03/10/17 18:07 Urine Glucose (UA) Normal mg/dL (Normal) 03/10/17 18:07 Urine Ketones Negative mg/dL (NEGATIVE) 03/10/17 18:07 Urine Blood Negative (NEGATIVE) 03/10/17 18:07 Urine Nitrate Negative (NEGATIVE) 03/10/17 18:07 Urine Bilirubin Negative (NEGATIVE) 03/10/17 18:07 Urine Urobilinogen Normal mg/dL (0.2-1.0) 03/10/17 18:07 Ur Leukocyte Esterase 1+ Cory/uL (Negative) H 03/10/17 18:07 Urine WBC (Auto) 6 /hpf (0-5) H 03/10/17 18:07 Urine RBC (Auto) 3 /hpf (0-3) 03/10/17 18:07 Ur Squamous Epith Cells 4 /hpf (0-5) 03/10/17 18:07 Ur Transition Epith Cell 1 /hpf (0-3) 03/10/17 18:07 Urine Bacteria Occ (<OCC) H 03/10/17 18:07 RPR Nonreactive (NONREACTIVE) 03/10/17 18:07 HIV 1&2 Antibody Screen Negative (NEGATIVE) 03/10/17 18:07 Blood Type O NEGATIVE 03/11/17 08:11 Antibody Screen Negative 03/11/17 08:11 - Date & Time of H&P Date of H&P: 03/10/17 Time of H&P: 17:45 Discharge Plan - Discharge Medications Prescriptions: oxyCODONE/Acetaminophen [Percocet 5/325 mg Tab] 1 ea PO Q6 PRN #20 tab PRN Reason: Pain, Severe (8-10) - Follow Up Plan Condition: GOOD Disposition: HOME/ ROUTINE Instructions: Oxycodone/Acetaminophen (By mouth), Caring for Your Baby (DC), C- Section (DC) Additional Instructions: 1.) Please refrain from sexual intercourse for 6 weeks 2.) Please follow up in the [facility] within 2 weeks 3.) Take percocet for pain as needed every 6 hours 4.) You are able to wash with your cesarian scar. Pat dry, Do not rub 5.) If you notice any symptoms, please return to the ED or the OB clinic for evaluation
[2017-03-13 08:08] VITALS: PULSE 88; RESP 20; TEMP 98.2; O2SAT 99
[2017-03-13] MEDS ORDERED: Measles, Mumps, and Rubella 0.5 ML VIAL SC ONE (09:15)
[2017-03-13] MEDS: Ferrous Fum/Folic Acid/IF/VI 1 Cap PO SCH (15:29)
== END 2017-03-13 17:50 | disposition home or self-care (01) | DRG 766 ==
LOC: C.EROB 16:57 → C.4D 17:54 → C.4M 03-11 01:43
PROVIDERS: ADMIT Obstetrics & Gynecology; ATTEND Obstetrics & Gynecology
PROC: 10D00Z1 Extraction of Products of Conception, Low, Open Approach (ICD-10-PCS; principal; 2017-03-10)
DX: O32.1XX0 Maternal care for breech presentation, not applicable or unspecified (principal); O24.425 Gestational diabetes mellitus in childbirth, controlled by oral hypoglycemic drugs; Z37.0 Single live birth; Z3A.36 36 weeks gestation of pregnancy

== ENCOUNTER 2019-03-09 10:30 | Emergency (ER) | payer MEDICAID, OTHER ==
[2019-03-09 10:31] VITALS: BMI 41.5
[2019-03-09 10:37] VITALS: BP 112/79
[2019-03-09] MEDS ORDERED: Albuterol-Ipratrop 3 mg / 0.5 (3 ml) UD INH STA (11:06)
--- NOTE | 2019-03-09 11:11 | C.PDOC ---
History Of Present Illness via parts interpreter 28 y/o female pt with hx of asthma, dx x1 year ago presents to the ER c/o cough with yellow sputum for x10 weeks. Associated sx includes sinus headache, sore throat, subjected fever and body aches that started yesterday. Pt denies any treatment and notes she used to have an inhaler but ran out. Pt denies sick contact, chest pain, SOB, recent travels, dizziness or nausea, vomiting or diarrhea. Time Seen by Provider: 03/09/19 10:54 Chief Complaint (Nursing): Cough, Cold, Congestion History Per: Recruitment And Outreach Assistant History/Exam Limitations: no limitations Onset/Duration Of Symptoms: Days Current Symptoms Are (Timing): Still Present Past Medical History Reviewed: Historical Data, Nursing Documentation, Vital Signs Vital Signs: Last Vital Signs Temp 97.6 F 03/09/19 10:33 Pulse 107 H 03/09/19 10:33 Resp 17 03/09/19 10:33 BP 112/79 03/09/19 10:33 Pulse Ox 97 03/09/19 10:33 Primary Care Provider: FAMILY PROVIDER,NO - Medical History PMH: Asthma - [facility] Procedures EXTRACTION OF POC, LOW CERVICAL, OPEN APPROACH (03/10/17) Family History: States: Unknown Family Hx - Social History Hx Tobacco Use: No Hx Alcohol Use: No Hx Substance Use: No - Immunization History Hx Tetanus Toxoid Vaccination: No Hx Influenza Vaccination: No Hx Pneumococcal Vaccination: No Review Of Systems Except As Marked, All Systems Reviewed And Found Negative. Constitutional: Positive for: Fever (subjective ). Negative for: Other (recent travels) ENT: Positive for: Throat Pain Cardiovascular: Negative for: Chest Pain Respiratory: Positive for: Cough, Sputum (yellow). Negative for: Shortness of Breath Gastrointestinal: Negative for: Nausea, Vomiting, Diarrhea Musculoskeletal: Positive for: Other (body aches ) Neurological: Positive for: Headache (sinus; not the worse she has ever felt ). Negative for: Dizziness Physical Exam - Physical Exam Appears: Non-toxic, No Acute Distress Skin: Warm, Dry, No Rash Head: Atraumatic, Normacephalic Eye(s): bilateral: EOMI Ear(s): Bilateral: Normal Nose: Normal, No Discharge Oral Mucosa: Moist Throat: No Exudate, Other (posterior pharynx injected; uvula midline, tonsils nonswollen ) Neck: Normal ROM, Trachea Midline, Supple, No Other (meningeal signs ) Lymphatic: Normal Exam, No Adenopathy Chest: Symmetrical Cardiovascular: Rhythm Regular Respiratory: No Decreased Breath Sounds, No Accessory Muscle Use, Wheezing (expiratory wheezing b/l but is clear after coughing ), Other (speaking in full sentences ) Gastrointestinal/Abdominal: Normal Exam, Soft, No Tenderness Extremity: Normal ROM, No Tenderness Neurological/Psych: Oriented x3, Normal Speech, Normal Cognition ED Course And Treatment O2 Sat by Pulse Oximetry: 97 (RA) Pulse Ox Interpretation: Normal - Radiology CXR: Interpreted by Me, Viewed By Me CXR Interpretation: Yes: No Acute Disease. No: Infiltrates, Cardiomegaly - Other Rad chest X-Ray: Read By Radiologist Interpretation: Accession No. : [id number]. Patient Name / ID : FLOYD GARCIA / [id number]. Exam Date : 03/09/2019 11:08:56 ( Approved ). Study Comment : Sex / Age : F / 28Y. Creator : Leah Lorenzana MD. Dictator : Leah Lorenzana MD. Sizer Machine : Boxing Trainer : Leah Lorenzana MD. Approver2 : Report Date : 03/09/2019 11:35:41. My Comment : . HISTORY: cough. COMPARISON: None available. TECHNIQUE: Chest PA and lateral, 2 views. FINDINGS: Examination limited by habitus. LUNGS: No focal consolidation. Please note that chest x-ray has limited sensitivity for the detection of pulmonary masses. PLEURA: No significant pleural effusion identified. No definite pneumothorax . CARDIOVASCULAR: The cardiomediastinal silhouette appears within normal limits of size. No atherosclerotic calcification present. OSSEOUS STRUCTURES: Degenerative changes. VISUALIZED UPPER ABDOMEN: Unremarkable. OTHER FINDINGS: None. IMPRESSION: No acute findings. Medical Decision Making Medical Decision Making: plans: -- influenza A B stat -- rapid strep -- POC urine -- CXR -- duoneb ordered. 03/09/19 1250 Patient reevaluated and updated on all results. Lungs clear on reexam. Vitals wnl and pulse ox 97% on RA. Patient is a 28yo well appearing, nontoxic female with hx of asthma. On initial exam has faint expiratory wheezing bilaterally. CXR and labs wnl. Appears well. Sats wnl. Talking in full complete sentences. Will treat for bronchitis with albuterol inhaler, cough medication and antibiotic. Advised to follow-up with clinic. Will return with any worsening or persistent symptoms or fevers, SOB, chest pain, weakness. Disposition Counseled Patient/Family Regarding: Studies Performed, Diagnosis, Need For Followup, Rx Given - Disposition Referrals: [facility] [Outside] Disposition: HOME/ ROUTINE Disposition Time: 12:51 Condition: IMPROVED Additional Instructions: Follow-up with clinic. Return if symptoms worsen or persist. Prescriptions: Albuterol HFA [Ventolin HFA 90 mcg/actuation (8 g)] 1 puff IH PRN PRN #1 inhaler PRN Reason: Cough Azithromycin [Zithromax] 250 mg PO DAILY #6 tab Benzonatate [Tessalon Perle] 100 mg PO TID #20 capsule Instructions: Acute Bronchitis Forms: Gen Discharge Inst Telugu, [employer] (Telugu), Work Excuse Print Language: ARMENIAN - Clinical Impression Clinical Impression: Bronchitis - PA / OVERHAULER / Resident Statement / has reviewed & agrees with the documentation as recorded. - Scribe Statement The provider has reviewed the documentation as recorded by the Katey Fontaine Do All medical record entries made by the Fabiolaibmag were at my direction and personally dictated by me. I have reviewed the chart and agree that the record accurately reflects my personal performance of the history, physical exam, medical decision making, and the department course for this patient. I have also personally directed, reviewed, and agree with the discharge instructions and disposition.
[2019-03-09] MEDS ORDERED: Albuterol-Ipratrop 3 mg / 0.5 (3 ml) UD ONE (11:33)
--- NOTE | 2019-03-09 11:39 | RAD ---
HISTORY: cough COMPARISON: None available. TECHNIQUE: Chest PA and lateral, 2 views FINDINGS: Examination limited by habitus. LUNGS: No focal consolidation. Please note that chest x-ray has limited sensitivity for the detection of pulmonary masses. PLEURA: No significant pleural effusion identified. No definite pneumothorax . CARDIOVASCULAR: The cardiomediastinal silhouette appears within normal limits of size. No atherosclerotic calcification present. OSSEOUS STRUCTURES: Degenerative changes. VISUALIZED UPPER ABDOMEN: Unremarkable. OTHER FINDINGS: None. IMPRESSION: No acute findings.
[2019-03-09 12:19] LABS: INFLUENZA A B NEGATIVE FOR FLU A/B (NEGATIVE)
[2019-03-09 13:04] VITALS: PULSE 88; RESP 18; TEMP 98.3
[2019-03-09 13:11] VITALS: O2SAT 97
== END 2019-03-09 13:03 | disposition home or self-care (01) ==
LOC: C.ER 10:30
DX: J40 Bronchitis, not specified as acute or chronic (principal)